=== PATIENT | female | born 1970 | race Caucasian/White ===

== ENCOUNTER 2024-09-14 08:29 | Outpatient (RCR) | payer MEDICAID, SELFPAY | END 2024-10-07 23:59 | disposition home or self-care (01) | LOC: SCTC 08:29 | PROVIDERS: PCP Nurse Practitioner Family; Referring Provider Nurse Practitioner Family; Visit Provider Nurse Practitioner Family | DX: Z08 Encounter for follow-up examination after completed treatment for malignant neoplasm (principal); Z85.43 Personal history of malignant neoplasm of ovary; Z90.710 Acquired absence of both cervix and uterus; Z90.722 Acquired absence of ovaries, bilateral | CPT/HCPCS: 99212; G0463 ==

== ENCOUNTER → 2025-01-22 | Outpatient (CLI) | payer MEDICAID, SELFPAY ==
--- NOTE | 2025-01-22 13:45 | XR_ITS ---
Examination: Screening digital mammography, bilateral Computer aided detection 3-D breast Tomosynthesis, bilateral Date and time of exam: January 22, 2025 1317 hours Compared to mammograms dating to 08/05/2020 Indication: Screening Technique: Nonmagnified MLO, CC views of the breasts to been obtained, reconstructed from 3-D Tomosynthesis images. R2 computer aided detection program utilized for evaluation of suspicious masses and/or abnormal calcifications. 3-D Tomosynthesis images obtained. Findings: Scattered areas of fibroglandular density. Benign calcifications. No interval suspicious masses Impression: BI-RADS category II: Benign Findings. Recommend 1 year follow-up mammogram.
== END | disposition home or self-care (01) ==
PROVIDERS: PCP Physician Assistant; Referring Provider Physician Assistant; Visit Provider Physician Assistant
DX: Z12.31 Encounter for screening mammogram for malignant neoplasm of breast (principal); R92.323 Mammographic fibroglandular density, bilateral breasts; R92.1 Mammographic calcification found on diagnostic imaging of breast; C56.2 Malignant neoplasm of left ovary
CPT/HCPCS: 77063; 77067

== ENCOUNTER 2025-02-21 07:55 | Emergency (ER) | payer MEDICAID, SELFPAY ==
[2025-02-21 07:55] VITALS: BMI 37.0
--- NOTE | 2025-02-21 08:39 | PD.EDSKIN ---
ED Skin Abcess FB-RME/HPI General Chief complaint: Skin/Abscess/Foreign Body Stated complaint: CYST ON BACK Time Seen by Provider: 02/21/25 08:00 Source: patient Arrival date/time: 02/21/25 07:55 54-year-old female with a history of type 2 diabetes, hypothyroidism, hypertension y presents to the emergency room with a chief complaint of a cyst to the center of her upper back that has been going on for the last 4 days Mode of arrival: ambulatory Limitations: no limitations Related Data Home Medications ?Medication ?Instructions ?Recorded ?Confirmed benazepril 10 mg tablet 10 mg PO QDAY #0 tabs 08/12/15 02/07/18 hydrochlorothiazide 25 mg tablet 25 mg PO QAM #0 tabs 08/12/15 02/07/18 levothyroxine 125 mcg tablet 125 mcg PO QDAY #0 tabs 08/12/15 02/07/18 loratadine 10 mg tablet (Claritin) 10 mg PO QDAY #0 tabs 08/12/15 02/07/18 metformin 500 mg tablet 500 mg PO BIDAC #0 tabs 08/12/15 02/07/18 (Glucophage) naproxen 250 mg tablet (Naprosyn) 250 mg PO BIDWM #0 tabs 08/12/15 02/07/18 allopurinol 100 mg tablet 100 mg PO QDAY ##30 12/31/15 02/07/18 ferrous sulfate 325 mg (65 mg 325 mg PO BID ##60 12/31/15 02/07/18 iron) tablet ascorbic acid (vitamin C) 500 mg 500 mg PO QDAY 02/07/18 02/07/18 capsule,extended release (Vitamin C) biotin 10,000 mcg capsule 1 tab PO DAILY 02/07/18 02/07/18 cinnamon bark 500 mg capsule 1,000 mg PO DAILY 02/07/18 02/07/18 (Cinnamon) cranberry extract 500 mg tablet 500 mg PO DAILY 02/07/18 02/07/18 cyanocobalamin (vitamin B-12) 1,000 mcg PO QDAY 02/07/18 02/07/18 1,000 mcg tablet (Vitamin B-12) garlic 1,000 mg capsule 1,000 mg PO QDAY 02/07/18 02/07/18 omega 7-msf-jyt-fish oil 300 1 tab PO DAILY 02/07/18 02/07/18 mg-1,000 mg capsule,delayed release (Fish Oil) vitamin E 268 mg (400 unit) capsule 400 unit PO QDAY 02/07/18 02/07/18 Previous Rx's ?Medication ?Instructions ?Recorded clindamycin HCl 300 mg capsule 300 mg PO TID 7 days #21 caps 02/21/25 Allergies Allergy/AdvReac Type Severity Reaction Status Date / Time amoxicillin Allergy Severe ITCHING Verified 02/21/25 07:57 rifampin Allergy Severe ITCHING Verified 02/21/25 07:57 Sulfa (Sulfonamide Allergy Severe ITCHING Verified 02/21/25 07:57 Antibiotics) POTASSIUM CLAVULANATE Allergy Severe ITCHING Uncoded 02/21/25 07:57 Review of Systems Review of Systems Systems Reviewed: All systems reviewed, normal except as documented Constitutional Constitutional: Reports system reviewed and no additional complaints, except as documented, Denies fatigue, Denies fever(s), Denies headache(s) and Denies weakness Eyes Eyes: Reports system reviewed and no additional complaints, except as documented, Denies blurry vision and Denies change in vision ENT Ears, Nose, Mouth, and Throat: Reports system reviewed and no additional complaints, except as documented, Denies otalgia, Denies headache(s), Denies nasal congestion, Denies throat swelling and Denies vertigo Cardiovascular Cardiovascular: Reports system reviewed and no additional complaints, except as documented, Denies chest pain, Denies dyspnea and Denies dyspnea on exertion Respiratory Respiratory: Reports system reviewed and no additional complaints, except as documented, Denies chest congestion, Denies cough, Denies dyspnea, Denies dyspnea on exertion and Denies wheezing Gastrointestinal Gastrointestinal: Reports system reviewed and no additional complaints, except as documented, Denies abdominal pain, Denies cramping, Denies nausea and Denies vomiting Genitourinary Genitourinary: Reports system reviewed and no additional complaints, except as documented Musculoskeletal Musculoskeletal: Reports system reviewed and no additional complaints, except as documented and Denies back pain Integumentary/Breasts Skin/Breast: Reports system reviewed and no additional complaints, except as documented, Reports erythema, Reports furuncle, Reports pruritus and Reports wounds Neurologic Neurologic: Reports system reviewed and no additional complaints, except as documented, Denies confusion, Denies headache(s), Denies lack of coordination, Denies vertigo and Denies weakness Psychiatric Psychiatric: Reports system reviewed and no additional complaints, except as documented, Denies anxiety, Denies confusion, Denies depression, Denies paranoia, Denies suicidal ideation and Denies tactile hallucinations Endocrine Endocrine: Reports system reviewed and no additional complaints, except as documented and Denies fatigue Hematologic/Lymphatic Hematologic/Lymphatic: Reports system reviewed and no additional complaints, except as documented and Denies lymphadenopathy Allergic/Immunologic Allergic/Immunologic: Reports system reviewed and no additional complaints, except as documented, Denies throat swelling, Denies urticaria and Denies wheezing Past Medical History Past Medical History NEUROLOGIC: Negative Neurological Disorders or Seizures CARDIAC: Positive Cardiac Disorders, Hypercholesterolemia (TAKES MED) and Hypertension (TAKES MED); Negative Congestive Heart Failure RESPIRATORY: Negative Chronic Obstructive Pulmonary Disease (COPD) GASTROINTESTINAL: Negative Gastrointestinal Disorders GENITOURINARY: Negative Genitourinary Disorders or Renal Disease MUSCULOSKELETAL: Positive Musculoskeletal Disorders, Arthritis and Gout ENDOCRINE: Positive Diabetes Mellitus Type 2 (TAKES PO MED) and Hypothyroidism (TAKES PO MED); Negative Diabetes Mellitus Type 1 HEMATOLOGIC: Positive Blood Disorders and Anemia (TAKES PO MED) OTHER HISTORY: Positive Chemotherapy (09/20/17), Chicken Pox, Cervical Cancer (? UNSURE) and Ovarian Cancer (? UNSURE); Negative Autoimmune Disease, Blood Transfusions, Blood Transfusion Reaction or Anesthesia Reactions Family History FAMILY HISTORY: Positive Family Cardiac Disorders (FATHER) and Family Surgery (FATHER) Surgical History SURGICAL: Positive Tonsillectomy and Hysterectomy (HAM OVARIES) Social History SMOKING STATUS: Never smoker ED Exam General Limitations: Present no limitations General appearance: Present alert and in no apparent distress Head Head exam: Present atraumatic Eye Eye exam: Present normal appearance, PERRL and EOMI ENT ENT exam: Present normal exam, normal oropharynx and mucous membranes moist Neck Neck exam: Present normal inspection, full ROM and trachea midline Chest Chest inspection: Present normal inspection and symmetric chest wall rise Respiratory Respiratory exam: Present normal lung sounds bilaterally Cardiovascular Cardiovascular exam: Present regular rate, normal rhythm and normal heart sounds Abdominal Exam Abdominal exam: Present soft and normal bowel sounds Extremities Exam Extremities exam: Present normal inspection and full ROM Back Exam Back exam: Present normal inspection and full ROM Back 1 view image:  1. There is a small 2 cm abscess that is erythemic warm to the touch and appears ready to be drained. Patient states it has been going on for the last 5 days and is now causing her pain. Neurological Exam Neurological exam: Present alert, oriented X3 and CN II-XII intact Psychiatric Psychiatric exam: Present normal affect and normal mood Skin Skin exam: Present warm, dry, intact and normal color Course Quality Measures none Orders Category Date Time Status Incision and Drainage Set Up X1 Care 02/21/25 08:38 Completed Set Up Suture Tray STAT Care 02/21/25 08:39 Completed Wound Care NOW Care 02/21/25 08:39 Completed Lidocaine 1% 20 ml [Xylocaine 1% 20 ML] Med 02/21/25 08:38 Discontinued 20 ml INFL X1 ONE TET,DIP/PERT AC (Adult)-Tdap [Boostrix Adult (Tdap) Med 02/21/25 08:38 Discontinued Vacc] 0.5 ml IMI .ONCE ONE Vital Signs Vital signs: Vital Signs Temperature 98.5 F 02/21/25 08:43 Pulse Rate 78 02/21/25 08:43 Respiratory Rate 18 02/21/25 08:43 Blood Pressure 157/91 H 02/21/25 08:43 Pulse Oximetry (%) 98 02/21/25 08:43 Oxygen Delivery Method Room Air 02/21/25 08:43 O2 saturation within normal limits Procedures -ED Abscess I/D Site: back Local Anesthetic: lidocaine 1% Amount of anesthesia used (mL): 3 Technique: incised with #11 blade Amount of fluid expressed (mL): 2 Irrigation: Yes Packing used?: none Skin / Abscess / Foreign Body MDM Narrative MDM Narrative:: 54-year-old female with a history of type 2 diabetes, hypothyroidism, hypertension y presents to the emergency room with a chief complaint of a cyst to the center of her upper back that has been going on for the last 4 days Patient has a small 2 cm erythemic pustule/cyst to the upper part of the center back. Patient states this has been going on since Wednesday and has progressively gotten worse. Today the patient states she is having some pain. I am able to palpate the abscess and it looks ready to be drained. PROCEDURE: incision and drainage of abscess to the center of her upper back PROCEDURE: A timeout protocol was performed prior to initiating the procedure. The area was prepared with Betadine and draped in the usual, sterile manner. The site was anesthetized with 1% lidocaine. A linear incision along the local skin lines was made and the purulent material expressed. The abscess was explored thoroughly and sequestered pockets were opened. Bleeding was minimal. Packing: none Followup: The patient tolerated the procedure well without complications. Standard post-procedure care is explained and patient was educated to follow-up with his primary care provider in the next 24 to 48 hours or return to the emergency room for any evidence of worsening signs or symptoms. Patient data External records reviewed:: [facility] previous records Clinical information provided by:: patient Social determinants that could affect healthcare access:: none Patient has the following chronic illnesses:: Type 2 diabetes, hypertension, hypothyroidism How is presenting disease/condition affected by chronic disease/condition?: exacerbated by Evaluation data The following diagnostics were reviewed and interpreted by me:: lab results and radiology exam(s) Lab and/or radiology exams considered but not ordered:: Labs and radiology exams considered and ordered Interpretation Summary: N/A Medications / Prescriptions Medications or Prescriptions considered but not ordered:: Rx given Medication administrations:: Medication Administration History Discontinued Medications Diphtheria/Tetanus/Acell Pertussis (Diphth,Pertuss(Acell),Tet Vac 0.5 Ml Syr- Adult) 0.5 ml IMi .ONCE ONE Stop: 02/21/25 08:39 Last Admin: 02/21/25 10:01 Dose: 0.5 ml Documented By: SABAS Lidocaine HCl (Lidocaine Hcl 1% 20 Ml Vial) 20 ml INFL X1 ONE Stop: 02/21/25 08:39 Last Admin: 02/21/25 11:05 Dose: 20 ml Documented By: SABAS Rx given Consultations Consultation(s) initiated? (list below): No Diagnosis Skin/Abscess Differential Diagnosis: abscess of skin or subcutaneous tissue, cellulitis and insect bites Most likely diagnosis given after review of the tests above:: Abscess of skin and subcutaneous tissue Admission Indicated Admission indicated?: not indicated Admission Request Was there a request for admission?: No Disposition Plan Disposition Plan: Discharge Discharge Attestation Discharge Attestation: The patient and all family members were given an opportunity to ask questions and understood the discharge instructions. Discharge instructions specifically effects, indications for sooner follow up or return to the emergency department, and the expected course of current diagnosis. Patient condition: Stable Discharge Plan Plan Patient Disposition: HOME (Self Care) Disposition Comment: Stable Prescriptions/Referrals Prescriptions/Med Rec: New clindamycin HCl 300 mg capsule 300 mg PO TID 7 Days Qty: 21 0RF No Action metformin [Glucophage] 500 MG tablet 500 mg PO BIDAC Qty: 0 naproxen [Naprosyn] 250 MG tablet 250 mg PO BIDWM Qty: 0 Patient Comments: PRN PAIN levothyroxine 125 mcg Tablet 125 mcg PO QDAY Qty: 0 hydrochlorothiazide 25 MG tablet 25 mg PO QAM Qty: 0 benazepril 10 mg Tablet 10 mg PO QDAY Qty: 0 loratadine [Claritin] 10 MG tablet 10 mg PO QDAY Qty: 0 allopurinol 100 MG tablet 100 mg PO QDAY Qty: 30 ferrous sulfate 325 ( 65 )MG tablet 325 mg PO BID Qty: 60 cyanocobalamin (vitamin B-12) [Vitamin B-12] 1,000 mcg Tablet 1,000 mcg PO QDAY garlic 1,000 mg Capsule 1,000 mg PO QDAY biotin 10,000 mcg Capsule 1 tab PO DAILY cinnamon bark [Cinnamon] 500 mg Capsule 1,000 mg PO DAILY ascorbic acid (vitamin C) [Vitamin C] 500 mg Capsule, Extended Release 500 mg PO QDAY cranberry extract 500 mg Tablet 500 mg PO DAILY vitamin E 400 unit Capsule 400 unit PO QDAY omega 5-vag-knm-fish oil [Fish Oil] 300-1,000 mg Capsule,Delayed Release(/Ec) 1 tab PO DAILY Referrals: Jj ([facility])Diane PA-C [Primary Care Provider] - In 1 week Problem List Clinical Impression: Abscess, Encounter for incision and drainage procedure Patient/Caregiver Discharge Instructions Education Materials: ED Abscess, Incision And Drainage Additional Instructions: Please follow-up with your primary care provider in the next 24 to 48 hours The abscess on your upper back was drained and cut open. A dressing was placed you will need to replace his dressing multiple times a day as this wound will be draining. Antibiotics are sent to your pharmacy please pick them up and take them as indicated. For any evidence of worsening signs or symptoms return to the emergency room immediately Print Language: Burmese Stand Alone Forms: Karyna Award Info., Patient Portal Info Letter PA/JAMIE Supervising Physician WENDY/JAMIE Supervising Physician: Dr Nascimento
[2025-02-21 08:43] VITALS: BP 157/91; PULSE 78; RESP 18; TEMP 36.9; O2SAT 98; BMI 38.1
[2025-02-21] MEDS: DIPHTH,PERTUSS(ACELL),TET VAC 0.5 ML SYR- ADULT IMi (10:01)
[2025-02-21] MEDS: LIDOCAINE HCL 1% 20 ML VIAL INFL (11:05)
== END 2025-02-21 11:11 | disposition home or self-care (01) ==
PROVIDERS: Emergency Provider Emergency Medicine
DX: L02.212 Cutaneous abscess of back [any part, except buttock and flank] (principal); E03.9 Hypothyroidism, unspecified; E11.9 Type 2 diabetes mellitus without complications; I10 Essential (primary) hypertension; Z23 Encounter for immunization
CPT/HCPCS: 10060; 90471; 90715; 99283; J3490

== ENCOUNTER 2025-03-14 09:34 | Outpatient (RCR) | payer MEDICAID, SELFPAY ==
--- NOTE | 2025-03-14 13:15 | CTCFLWUP_ITS ---
Patient: AMY HOFFMANN. : 1970 Page 2 of 2 FOLLOW UP NOTE DATE OF SERVICE: 03/14/2025 NAME: AMY HOFFMANN ACCOUNT: [id number] : 1970 AGE: 54 INTERVAL HISTORY: Amy Hoffmann, a female with ovarian cancer, presented for routine follow-up. 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 Recent labs showed normal hemoglobin and CA125 with slightly elevated BUN. Mammogram was normal. Patient remains asymptomatic after 8 years. Plan includes [facility] cancer screening, annual follow-up, mammogram in January 2026, and continued monitoring for recurrence symptoms. 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 The patient reports no new symptoms or concerns related to her previous cancer diagnosis. The patient denies any symptoms typically associated with ovarian cancer recurrence, such as abdominal swelling, increased abdominal girth, weight gain, or pressure in the stomach. She also denies any cough or blood in sputum, which could indicate metastasis to the lungs. The patient reports no unexplained weight loss, appetite changes, or persistent sadness. She appears to be maintaining her overall health and functioning well. 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 Encouraged to consume protein and nuts. - Exercise: No specific exercise habits mentioned, but general advice given to maintain overall health and mobility. - Stress Management: Encouraged to focus on overall health and well-being rather than specific weight goals. Review of Systems General: Negative for weight loss, appetite changes. Gastrointestinal: Negative for abdominal swelling, increased abdominal girth, or stomach pressure. Respiratory: Negative for cough, blood in sputum. Psychiatric: Negative for persistent sadness, anhedonia. 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 Patient is disabled due to learning disability. REASON FOR TODAY?S VISIT: This is office follow-up visit for ovarian cancer. Malignant neoplasm of left ovary [ICD10] C56.2 DATE OF DIAGNOSIS: STAGE/TNM: TREATMENT HISTORY: Care?Plan Start?Date Cycle Day Intent CARBOplatin?AUC?6,?PACLItaxel?175?-?Rec?or?Met 05/27/2017 1 Curative?(primary) HISTORY OF PRESENT ILLNESS: Ms. Hoffmann is here at [facility]. She is clinically doing well. Labs from 09/05/2024 show CA125 is 10.7, CEA is 2.2. Reports good appetite and energy levels, exercises twice a day, walking, lives at home with her parents. Ambulating well without any assistance. Patient denies any new complaints. Denies any weakness, fatigue, cough, chest pain, abdominal pain or leg cramps. Denies any weight loss or loss of appetite. HISTORY: Amy Bearden is a 54-year-old female with history of excessive frequent vaginal bleeding had bilateral salpingo-oophorectomy and total abdominal hysterectomy and excision of perineal cyst on 01/01/2017. 03/25/2017: Patient had exploratory laparotomy, omentectomy, pelvic washings, lymph node dissection, liver biopsies, removal of all known or suspected cancerous growth? 05/27/2017?11/01/2017: Adjuvant chemotherapy with Taxol and carboplatin for total of 8 cycles. 08/03/2018: Bernard genetic test?BRCA 1 and 2-, MLH1, MSH2, MSH6 negative. 01/28/2019: CT scan of the chest abdomen pelvis with IV contrast did not show any evidence of recurrence. 08/01/2019: Ca1 25 is 7.9 01/23/2019: Ca1 25 is 8.7 05/30/2019: CA 125 is 7.8 09/25/2019: CA 125 is 11.1 01/18/2020: Ca1 25 is 8.3. 06/03/2020: Ca1 25 is 10.9. 12/10/2020: CA-125 is 14.0. 04/07/2022: CA125 13.3, CEA 2.5. 08/23/2023: CA125 is 23.9. 01/07/2024: Bilateral mammogram screening Impression: BI-RADS category II: Benign Findings. Recommend 1 year follow-up mammogram. 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 atorvastatin - 20 mg 1 tab Daily 2. benazepril - 10 mg 1 tab Daily 3. levothyroxine - 125 mcg 1 Capsule Daily 4. Lopurin - 100 mg Daily 5. montelukast - 10 mg 10 mg Daily Medications Last Reconciled by Armida Mock RN on 03/14/2025 ALLERGIES: sulfasalazine; amoxicillin-pot clavulanate; RIFAMPIN REVIEW OF SYSTEMS: A complete 14-point review of systems was performed and is negative except as noted in interval history. PHYSICAL EXAMINATION: VITAL SIGNS: Temperature?98.6, B/P?136/83, Oxygen?Saturation?97% Weight?251?lbs PAIN: 0 - No pain ECOG Performance Status: 0 - Asymptomatic and fully active GENERAL APPEARANCE: Appears well, in no apparent distress, appropriately interactive. HEENT: Normocephalic, no temporal wasting, normal conjunctiva, no scleral icterus, normal hearing, lips without lesions, neck normal range of motion. CARDIOVASCULAR: Not assessed. PULMONARY: Normal respiratory effort, no respiratory distress or use of accessory muscles, speaking in full sentences, no tachypnea. EXTREMITIES: No pedal edema or cyanosis. SKIN: Normal skin appearance. NEUROLOGIC: Alert and oriented x4. PSHYCHIATRIC: Appropriate affect, mood normal, behavior normal, intact thought and speech. LABORATORY DATA: I have personally reviewed and interpreted each of the patient?s relevant lab tests, abnormal findings are below: Date 01/23/19 05/30/19 ??WHITE?BLOOD?COUNT?(Thou/mm3) 10.1 10.2 ??RED?BLOOD?COUNT?(Miln/mm3) 3.92?L 4.21 ??HEMOGLOBIN?(gm/dl) 12.6 13.3 ??HEMATOCRIT?(%) 37.5 39.9 ??PLATELET?COUNT?(Thou/mm3) 207 209 ??NEUTROPHILS?%,?AUTO?(%) 74 74 ??LYMPH?%,?AUTO?(%) 18 17 ??NEUTROPHILS,?AUTO?(Thou/mm3) 7.4 7.5 ??GLUCOSE,RANDOM?(mg/dL) ? 187?H ??BLOOD?UREA?NITROGEN?(mg/dL) ? 18 ??CREATININE?(mg/dL) ? 1.00 ??SODIUM?(mmol/L) ? 140 ??POTASSIUM?(mmol/L) ? 3.6 ??CHLORIDE?(mmol/L) ? 100 ??CrCl?(CandG)?(ml/min) ? 91.94 ??AST/SGOT?(Unit/L) ? 15 ??ALT/SGPT?(Unit/L) ? 24 ??ALKALINE?PHOSPHATASE?(Unit/L) ? 76 ??BILIRUBIN,?TOTAL?(mg/dL) ? 0.3 ??PROTEIN?TOTAL?(gm/dl) ? 8.1 ??ALBUMIN,?SERUM?(gm/dl) ? 3.9 ??GLOBULIN?(gm/dl) ? 4.2?H ??ALBUMIN/GLOBULIN?RATIO ? 0.9?L ??CALCIUM,?SERUM?(mg/dL) ? 9.2 ??CALCIUM?SERUM?(CORRECTED)?(mg/dL) ? 9.3 ??CA?125?(O*)?(Unit/mL) ? 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 It has been approximately 8 years since diagnosis. Recent labs show normal hemoglobin at 13.9 and slightly elevated BUN. CA125 is normal. Mammogram on January 22 was normal. Patient is currently asymptomatic and appears to be in remission. Plan: - Order [facility] testing for cancer screening - Schedule follow-up appointment in 1 year - Order mammogram for January 2026 - Continue monitoring for symptoms of ovarian cancer recurrence, including: - Abdominal swelling or increased girth - Abdominal pressure - Weight gain - Cough or blood in sputum - Unexplained weight loss - Changes in appetite - Persistent sadness or anhedonia - Encourage maintaining a healthy lifestyle: - Consume a diet rich in fruits and vegetables - Maintain a healthy weight - Regular exercise as tolerated ORDERS: Order # Description [id number] Comprehensive Metabolic Panel - 12 + CBC with Auto Diff + MD Follow Up 1 Year + CA 125 + [id number] CEA RETURN TO CLINIC: BILLING AND COMPLIANCE: I reviewed external records from providers outside my specialty as summarized above. I spent a total of 50 minutes on this patient?s care on the day of their visit excluding time spent related to any billed procedures. This time includes time spent with the patient as well as time spent documenting in the medical record, reviewing patients records and tests, obtaining history, placing orders, communicating with other healthcare professionals, counseling the patient, family or caregiver, and/or care coordination for the diagnoses above. Electronically Signed by: Oliverio Voss MD T: 1:13 PM CC: Mik?[place],? PCP: Diane Gardner Referring: Diane Gardner This document was completed utilizing speech recognition software. Grammatical errors, random word insertions, pronoun errors, and incomplete sentences are an occasional consequence of this system due to software limitations, ambient noise, and hardware issues. Any formal questions or concerns about the content, text or information contained within the body of this dictation should be directly addressed to the provider for clarification.
== END 2025-04-07 23:59 | disposition home or self-care (01) ==
LOC: SCTC 09:34
PROVIDERS: PCP Student in an Organized Health Care Education/Training Program; Referring Provider Student in an Organized Health Care Education/Training Program; Visit Provider Internal Medicine Hematology & Oncology
DX: Z08 Encounter for follow-up examination after completed treatment for malignant neoplasm (principal); Z85.43 Personal history of malignant neoplasm of ovary; Z90.710 Acquired absence of both cervix and uterus
CPT/HCPCS: 99212; G0463

== ENCOUNTER 2025-04-12 07:50 | Outpatient (RCR) | payer MEDICAID, SELFPAY | END 2025-05-07 23:59 | disposition home or self-care (01) | LOC: SCTC 07:50 | PROVIDERS: PCP Student in an Organized Health Care Education/Training Program; Referring Provider Student in an Organized Health Care Education/Training Program; Visit Provider Internal Medicine Hematology & Oncology | DX: Z08 Encounter for follow-up examination after completed treatment for malignant neoplasm (principal); Z85.43 Personal history of malignant neoplasm of ovary | CPT/HCPCS: 36415 ==